=== PATIENT | male | born 1945 | race Caucasian/White ===

== ENCOUNTER 2016-10-23 07:43 | Emergency (ER) | payer MEDICARE, BC ==
--- NOTE | 2016-10-26 12:41 | ER ---
ADMIT: 10/23/2016 RM/LOC: ER [facility] MR#: [id number] [facility] [id number] FAT[address] QUINTANILLA [address] [place] [address] Emergency Room Report SEX: M AGE: 71 : 1945 DATE: 10/23/2016 ADDENDUM: A 71-year-old white male coming in with left flank pain. He has an about a 4 mm stone distally, he should pass it on his own. He has had stones before. CBC, chemistry, urine normal. He has had hydrocodone in the past, it has not helped at all, so we switched him to Percocet 5/325, one to two p.o. q.6 p.r.n. pain. [facility] CONDITION ON DISCHARGE: Good. Madi Osorio MD/ arnaud JOB #: [id number] CC: Madi Osorio MD, Attending Physician [facility] Physician, Family Physician
== END 2016-10-23 09:45 | disposition home or self-care (01) ==
LOC: ER 07:43
DX: N13.2 Hydronephrosis with renal and ureteral calculous obstruction (principal); Z79.82 Long term (current) use of aspirin; Z88.8 Allergy status to other drugs, medicaments and biological substances